=== PATIENT | female | born 1965 | race Hispanic/Latino ===

== ENCOUNTER 2025-03-24 03:02 | Emergency (ER) | payer BC ==
[~2025-03-24] VITALS: Ht 170.2 cm; Wt 126.6 kg
--- NOTE | 2025-03-24 03:13 | ERN ---
ED Note History of Present Illness Stated Complaint: PALPITATIONS Chief Complaint: Palpitations Time Seen by MD: 03:07 Dictation: This is a 60-year-old female who presented to the emergency room with complaints of palpitations. Patient has not never had any health maintenance and has not never been to a doctor to get checked for any comorbidities. She went fishing with her son today and returned by 5:00 p.m. Patient apparently ate some chips and drank a Coke and fell asleep she woke up around 1:00 a.m. feeling palpitations as she got up to go to the bathroom. Since the heart was racing she wanted to come to the ER and get checked out. EMS was called. She drank coffee in the morning. She also admits to heavy smoking since age 37. She also admits to drinking Coca-Cola daily. She denied any chest pains pressure. No syncopal episodes. She has had similar palpitations in the past but not this bad. She denied any diaphoresis, diarrhea. No presyncopal or syncopal episodes. No history of any weight loss loss of appetite or bleeding of any sort The pulse rate was 94 blood pressure was 177/133. Temperature 98.1 pulse 107 respirations 20 blood pressure 166/99 with a pulse oximetry of 99% on room air Family history include diabetes mellitus type 2, hypertension, patient has morbid obesity with a BMI of 44 Allergies: Coded Allergies: codeine (Unverified Allergy, Unknown, 03/24/25) Past Medical History Past Medical History: Diabetes-Type II, Hypertension Surgical History: Other Surgical History Other: TUBAL Family History: Negative History: Not Applicable RN Note Reviewed/Agreed w/PFSH: Yes Review of System Dictation Constitutional: Negative for fever,chills, and weight loss Eyes: Negative for injury, pain,redness, and discharge ENT: Negative for injury,pain or swelling Cardiovascular: Negative for chest pain, palpitations, and edema Respiratory: Negative for shortness of breath, cough, and wheezing, Abdomen/GI: Negative for abdominal pain, nausea, vomiting, diarrhea, and constipation Back: Negative for injury and pain : Negative for injury, bleeding and discharge MS/Extremity: Negative for injury and deformity Skin: Negative for rash, and discoloration Neuro: Negative for headache, weakness, numbness, tingling, and seizure Psych: Negative for suicide ideation, homicidal ideation, and hallucinations Initial Vital Sign VS Vital Signs Date Time Temp Pulse Resp B/P (MAP) Pulse Ox O2 Delivery O2 Flow Rate FiO2 03/24/25 03:04 98.1 107 20 166/99 99 Room Air 0 03/24/25 03:25 21 Physical Exam Dictation General: awake, alert, NAD Head/Face: Normocephalic, atraumatic Eyes: PERRL, EOMI, vision at baseline ENT: oral cavity clear, TMs clear, no signs of infection Neck: Trachea midline, supple, no nuchal rigidity Cardiovascular: RRR, normal S1/S2, No MRGs, no JVD Respiratory: CTAB, no respiratory distress, No rales or wheezes Abdomen: Soft, non-tender, non-distended, normal bowel sounds, no guarding or rebound. Skin: Warm, dry, normal turgor, no rash MS/Extremity: Pulses equal, no cyanosis, neurovascular intact, FROM Neuro: COAx4, GCS 15, strength 5/5, CN 2-12 intact, normal cerebellar exam, normal gait, Psych: Normal behavior, mood, and affect normal Extremities-trace edema without any palpable cords, Homans sign is negative Results (Laboratory/Radiology) Laboratory/Radiology Laboratory Tests Test 03/24/25 03:21 White Blood Count 8.3 K/uL (4.8-10.8) Red Blood Count 5.72 MIL/uL (4.00-5.50) H Hemoglobin 18.1 g/dL (12.0-16.0) H Hematocrit 53.7 % (36-48) H Mean Corpuscular Volume 93.9 fL (79-99) Mean Corpuscular Hemoglobin 31.6 pg (27.0-33.0) Mean Corpuscular Hemoglobin Concent 33.7 g/dL (32.0-36.0) Red Cell Distribution Width 13.5 % (11.0-15.5) Platelet Count 224 K/uL (130-400) Mean Platelet Volume 11.0 fL (7.5-10.5) H Immature Granulocyte % (Auto) 0.1 % (0-1) Neutrophils (%) (Auto) 52.9 % (40.0-77.0) Lymphocytes (%) (Auto) 33.9 % (21.0-51.0) Monocytes (%) (Auto) 8.3 % (3.0-13.0) Eosinophils (%) (Auto) 3.6 % (0.0-8.0) Basophils (%) (Auto) 1.2 % (0.0-5.0) Neutrophils # (Auto) 4.4 K/uL (1.8-7.7) Lymphocytes # (Auto) 2.8 K/uL (1.0-4.8) Monocytes # (Auto) 0.7 K/uL (0.1-1.0) Eosinophils # (Auto) 0.30 K/uL (0.00-0.70) Basophils # (Auto) 0.10 K/uL (0.00-0.20) Absolute Immature Granulocyte (auto 0.01 K/uL (0-1) Nucleated Red Blood Cells 0.0 % (0.0-0.19) Prothrombin Time 10.5 SEC (9.6-11.6) Prothromb Time International Ratio 0.99 (0.85-1.15) Activated Partial Thromboplast Time 27.6 SEC (26.3-35.5) D-Dimer Quantitative (PE/DVT) 385 ng/mL (0-500) Sodium Level 138 mmol/L (136-145) Potassium Level 4.0 mmol/L (3.5-5.1) Chloride Level 102 mmol/L (101-111) Carbon Dioxide Level 27 mmol/L (21-32) Blood Urea Nitrogen 9 mg/dL (7-18) Creatinine 0.8 mg/dL (0.5-1.0) Glomerular Filtration Rate Calc 85 mL/min (>90) Random Glucose 207 mg/dL (70-105) H Total Calcium 9.3 mg/dL (8.5-10.1) Troponin I High Sensitivity 10 ng/L (4-50) B-Type Natriuretic Peptide 43 pg/mL (0-100) Thyroid Stimulating Hormone (TSH) 25.16 uIU/mL (0.36-3.74) H Labs Reviewed?: Yes EKG Comment: Twelve lead EKG done on 03/24/2025 at 3:45 a.m. showed a heart rate of 100, ID interval 180, QRS 80, QT/QTC 342/442. Impression normal sinus rhythm with sinus tachycardia overall low voltage likely secondary to body habitus with a BMI of 44 EKG rhythm strip shows a normal sinus rhythm with no acute STT wave changes. Interpreted by ER MD Dr. Nash X-RAY Comment: Overall it does not show any focal infiltrate the poor penetration film positioning is also not appropriate radiology report is pending REASON: PALPITATIONS ORDERING PHYSICIAN: KARINE NASH MD PROCEDURE: CXR1VW - CHEST 1VW EXAM: CR Chest, single view. CLINICAL HISTORY: Palpitations COMPARISON: None FINDINGS: The lungs show no infiltrate or other acute findings. No pleural effusion or pneumothorax. The cardiomediastinal silhouette is within normal limits. No acute osseous abnormality. IMPRESSION: No acute cardiopulmonary pathology is evident. /[place] DICTATED BY: POLA BOSTON Jr., MD DATE: 03/24/25455 ELECTRONICALLY SIGNED BY: POLA BOSTON Jr., MD DATE: 03/24/25455 ED Course ED Course Orders Procedure Category Date Status Time 12 Lead Ekg Tracing- EKG 03/24/25 Logged Technical 03:11 Cbc With Differential LAB 03/24/25 Complete 03:12 Basic Metabolic Panel LAB 03/24/25 Complete 03:12 Troponin I High LAB 03/24/25 Complete Sensitivity 03:12 Pt And Ptt LAB 03/24/25 Complete 03:12 B-Type Natriuretic LAB 03/24/25 Complete Peptide 03:12 Chest 1vw RAD 03/24/25 Resulted 03:12 12 Lead Ekg Tracing- EKG 03/24/25 Logged Technical 03:23 D-Dimer LAB 03/24/25 Complete 03:23 Thyroid Stimulating LAB 03/24/25 Complete Hormone 03:21 Metoprolol Tartrate PHA 03/24/25 Complete (Lopressor) 04:00 Current Medications Medications (Trade) Dose Ordered Sig/Isabel Route PRN Reason Start Time Stop Time Status Last Admin Dose Admin Metoprolol Tartrate (loprESSOR) 5 mg ONCE ONCE IV 03/24/25 04:00 03/24/25 04:01 DC 03/24/25 04:02 Vital Signs Date Time Temp Pulse Resp B/P (MAP) Pulse Ox O2 Delivery O2 Flow Rate FiO2 03/24/25 04:02 105 12/16/25 03:25 98.8 98 18 175/68 98 Room Air* 0 21 03/24/25 03:04 98.1 107 20 166/99 99 Room Air 0 Medical Decision Making MDM Differential diagnosis - volume depletion, sepsis, hyperthyroidism, recreational drug abuse, cardiac event, pulmonary thromboembolic disease, withdrawal from hypertension medication, anemia This is a 60-year-old female who presented to the emergency room with complaints of palpitations. Patient has not never had any health maintenance and has not never been to a doctor to get checked for any comorbidities. She went fishing with her son today and returned by 5:00 p.m. Patient apparently ate some chips and drank a Coke and fell asleep she woke up around 1:00 a.m. feeling palpitations as she got up to go to the bathroom. Since the heart was racing she wanted to come to the ER and get checked out. EMS was called. She drank coffee in the morning. She also admits to heavy smo hiro since age 37. She also admits to drinking Coca-Cola daily. She denied any chest pains pressure. No syncopal episodes. She has had similar palpitations in the past but not this bad. She denied any diaphoresis, diarrhea. No presyncopal or syncopal episodes. No history of any weight loss loss of appetite or bleeding of any sort The pulse rate was 94 blood pressure was 177/133. Temperature 98.1 pulse 107 respirations 20 blood pressure 166/99 with a pulse oximetry of 99% on room air Family history include diabetes mellitus type 2, hypertension, patient has morbid obesity with a BMI of 44 4:13 a.m. labs reviewed CBC showed a white count of 8.3 hemoglobin 18 hematocrit to 24. BNP 7 showed a bicarb of 27 BUN and creatinine of 9 and 0.8 and a glucose of 207 brain natriuretic peptide is 43 troponins are negative. TSH level is 25.16. D-dimer is 385 which is negative. Chest x-ray is unremarkable for any acute infiltrate. EKG did not show any acute abnormalities and throughout the patient's heart rate has been around 100 I updated the patient and her daughter on possibilities and etiology for her palpitations. My opinion I this is a combination of caffeinated drinks, morbid obesity with a untreated sleep disorder and the arousal from sleep was manifested by increased heart rate and blood pressure which is the Hallmark of brain arousal. Probably suspect patient had apneas and hypopneas preceding that. Patient's Wells score is only 1.5 points diapers are negative-my clinical index of suspicion for VTE is extremely low at this time I educated the patient on the need for preventive care and she will make an appointment as soon as possible and address all the abnormal labs as well as comorbidities including hypertension diabetes cholesterol thyroid as well as sleep disorder I counseled her extensively on weight loss diet exercise lifestyle modifications and she verbalized full understanding Problem List Problem List: (1) Palpitations (2) Morbid obesity (3) Tobacco abuse (4) Elevated TSH DX & DISP Disposition: Discharge Departure Impression: Primary Impression: Palpitations Additional Impressions: Morbid obesity, Elevated TSH, Tobacco abuse Condition: Stable Additional Instructions: Patient and the caregiver have been informed of all the diagnostic tests and the imaging conducted during the today's visit to the emergency room and has verbalized understanding of the results I have personally reviewed and interpreted all diagnostic exams performed here in the ER today as well as the vital signs documented by the nursing staff. The patient is now being discharged to home and should follow up with the primary care physician or the specialist as directed by the ER staff. Patient must get established with a primary care physician domenic. Routine health maintenance labs need to be addressed Patient to care home the TSH levels to see further evaluation to be done for hypothyroidism Patient also needs to be evaluated for a sleep disorder KARINE NASH MD Mar 24, 2025 03:13
[2025-03-24 03:31] LABS: IMMATURE GRANULOCYTE ABSOLUTE 0.01 K/uL (0-1); NUCLEATED RED BLOOD CELLS 0.0 % (0.0-0.19); PLATELET COUNT (AUTO) 224 K/uL (130-400); RED BLOOD CELL COUNT(AUTO) 5.72 MIL/uL (4.00-5.50); RED CELL DISTRIBUTION WIDTH 13.5 % (11.0-15.5); WHITE BLOOD COUNT (AUTO) 8.3 K/uL (4.8-10.8)
[2025-03-24 03:48] LABS: CREATININE 0.8 mg/dL (0.5-1.0); GLOMERULAR FILTR. RATE CALC 85.0 mL/min (>90); GLUCOSE,RANDOM 207.0 mg/dL (70-105); SODIUM SERUM 138.0 mmol/L (136-145); UREA NITROGEN, BLOOD 9.0 mg/dL (7-18)
[2025-03-24 03:55] LABS: INR 0.99 (0.85-1.15)
--- NOTE | 2025-03-24 03:57 | HMCIMG ---
EXAM: CR Chest, single view. CLINICAL HISTORY: Palpitations COMPARISON: None FINDINGS: The lungs show no infiltrate or other acute findings. No pleural effusion or pneumothorax. The cardiomediastinal silhouette is within normal limits. No acute osseous abnormality. IMPRESSION: No acute cardiopulmonary pathology is evident. /[place]
[2025-03-24 05:14] VITALS: BP 146/80; PULSE 73; RESP 18; TEMP 98.3; O2SAT 98
--- NOTE | 2025-03-24 08:37 | EKG ---
[facility] Test Date: 2025-03-24 Test Time: 03:45:03 Pat Name: SHERON SIDHU Department: [facility] Patient [place] [facility] [id number] Room: Gender: F [employer]/Designer: [birth year] Requested By: KARINE NASH Order Number: [id number] Reading MD: Hung He Measurements Intervals [place] Rate: 100 P: 35 [place]: 180 QRS: 15 QRSD: 80 T: 10 QT: 342 QTc: 442 Interpretive Statements Sinus tachycardia Low voltage, precordial leads No previous ECG available for comparison Electronically Signed On 03-24-2025 23:47:53 [employer]ORTS EDITOR by Hung He Please click the below link to view image of tracing.
== END 2025-03-24 05:24 | disposition home or self-care (01) ==
LOC: EDH 03:02
DX: R00.2 Palpitations (principal); E66.01 Morbid (severe) obesity due to excess calories; R94.6 Abnormal results of thyroid function studies; E11.9 Type 2 diabetes mellitus without complications; I10 Essential (primary) hypertension; Z72.0 Tobacco use; Z79.01 Long term (current) use of anticoagulants; Z88.5 Allergy status to narcotic agent; Z98.890 Other specified postprocedural states
CPT/HCPCS: 99284; 96374; 71045; 84443; 84484; 80048; 83880; 85025; 85378; 85610; 85730; 36415; 93005; J3490